=== PATIENT | female | born 1950 | race Caucasian/White ===

== ENCOUNTER 2017-11-19 09:26 | Inpatient (IN) | payer MEDICARE, BC ==
[~2017-11-19] VITALS: Ht 172.7 cm; Wt 76.0 kg
[2017-11-19] VITALS (17 sets, daily range): BP systolic 97–144; BP diastolic 51–94
[~2017-11-19 09:26] MED LIST: COU1T PO
[2017-11-19 10:34] LABS: BASOPHILS % (AUTO) 0.3 % (0-1); EOSINOPHILS # (AUTO) 0.1 X10'3 (0-0.9); EOSINOPHILS % (AUTO) 2.4 % (0-6); HEMATOCRIT 35.6 % (35.0-45.0); HEMOGLOBIN 11.5 g/dl (12.0-16.0); LYMPHOCYTES # (AUTO) 2.3 X10'3 (1.1-4.8); LYMPHOCYTES % (AUTO) 36.4 % (21-51); MEAN CORPUSCULAR HEMOGLOBIN 25.2 PG (27.0-31.0); MEAN CORPUSCULAR HGB CONC 32.3 % (33.0-36.5); MEAN CORPUSCULAR VOLUME 78.1 FL (78-98); MEAN PLATELET VOLUME 7.8 FL (7.4-10.4); MONOCYTES # (AUTO) 0.3 X10'3 (0-0.9); MONOCYTES % (AUTO) 5.5 % (2-12); NEUTROPHILS # (AUTO) 3.4 X10'3 (1.8-7.7); NEUTROPHILS % (AUTO) 55.4 % (42-75); PLATELET COUNT 196 X10'3 (140-440); RED BLOOD COUNT 4.56 X10'6 (4.20-5.60); RED CELL DISTRIBUTION WIDTH 16.5 % (11.5-14.5); WHITE BLOOD COUNT 6.2 X10'3 (4.5-11.0)
[2017-11-19 10:44] LABS: INR 0.9 INR; PARTIAL THROMBOPLASTIN TIME 23 SECONDS (22-32); PROTHROMBIN TIME 9.8 SECONDS (9.0-12.0)
[2017-11-19 10:49] LABS: ALANINE AMINOTRANSFERASE 19 U/L (12-78); ALBUMIN/GLOBULIN RATIO 1.1 (1.1-1.5); ALKALINE PHOSPHATASE 81 IU/L (46-116); ANION GAP 12 (8-16); ASPARTATE AMINO TRANSFERASE 18 U/L (10-37); BILIRUBIN,TOTAL 0.3 MG/DL (0.1-1.0); BLOOD UREA NITROGEN 17 MG/DL (7-18); CALCIUM 9.5 MG/DL (8.5-10.1); CHLORIDE 104 MMOL/L (99-107); GLUCOSE 111 MG/DL (70-104); POTASSIUM 3.6 MMOL/L (3.5-5.1); SODIUM 140 MMOL/L (135-145); TOTAL CARBON DIOXIDE 23.9 MMOL/L (24-32); TOTAL PROTEIN 7.6 G/DL (6.4-8.2); eGFR 56 ML/MIN
[2017-11-19] MEDS ORDERED: potassium Cl 20 mEq SR tablet PO PRN (12:50)
[2017-11-19] MEDS ORDERED: potassium Cl 40MEQ/NS 500ml 500 ML IV PRN ×2 (12:50)
[2017-11-19] MEDS ORDERED: magnesium Cl slow-release 64mg tablet PO PRN (12:50)
[2017-11-19] MEDS ORDERED: ondansetron/PF 4mg/2ml inj IV PRN ×2 (12:50→15:25)
[2017-11-19] MEDS ORDERED: magnesium 1gm/100ml D5W IVPB 100 ML IV PRN (12:50)
[2017-11-19] MEDS ORDERED: acetaminophen 325mg tablet PO PRN (12:50)
[2017-11-19] MEDS ORDERED: magnesium 4gm in 100ml NS 100 ML IV PRN (12:50)
[2017-11-19] MEDS ORDERED: fentaNYL/PF 50MCG/1 ML 2ML syringe ONE (14:37)
[2017-11-19] MEDS ORDERED: MIDAZolam 5mg/5ml vial ONE (14:38)
[2017-11-19] MEDS ORDERED: BUPIVAcaine/PF 7.5mg/ml (0.75%) 10ml vial ONE (14:40)
[2017-11-19] MEDS ORDERED: ceFAZolin 1GM/D5W- ADD-VANTAGE 50 ML IV ONE (15:00)
[2017-11-19] MEDS ORDERED: ringers solution, lacted 1,000 ML IV SCH (15:24)
[2017-11-19] MEDS ORDERED: HYDROmorphone 1 mg/ml syringe IV PRN ×2 (15:25→15:30)
[2017-11-19] MEDS ORDERED: diphenhydrAMINE 50 mg/ml inj ONE (15:29)
[2017-11-19] MEDS ORDERED: phenylephrine 10mg/ml inj. ONE (15:29)
[2017-11-19] MEDS ORDERED: bisacodyl 10mg suppository rectal RC PRN (15:30)
[2017-11-19] MEDS ORDERED: magnesium hydroxide 30ml (MOM) UD suspension PO PRN (15:30)
[2017-11-19] MEDS ORDERED: diphenhydrAMINE 25mg capsule PO PRN ×2 (15:30)
[2017-11-19] MEDS: normal saline 1000ml 1,000 ML IV SCH (16:58)
[2017-11-19] MEDS: ceFAZolin 1GM/D5W- ADD-VANTAGE 50 ML IV SCH ×2 (16:58→23:48)
[2017-11-19] MEDS ORDERED: FLUT1DIS4 INH (19:53)
[2017-11-19] MEDS ORDERED: ALBU18HF2 INH (19:53)
[2017-11-19] MEDS ORDERED: OMEP20TA5 PO (19:53)
[2017-11-19] MEDS ORDERED: MONT10TA21 PO (19:53)
[2017-11-19] MEDS ORDERED: EZET10TA14 PO (19:53)
[2017-11-19] MEDS: docusate sod 100mg capsule PO SCH (20:00)
[2017-11-19] MEDS: sennosides 8.6mg tablet PO SCH (20:15)
[2017-11-19] MEDS: calcium carbonate 500mg chew tablet PO PRN (20:17)
[2017-11-20 02:00] VITALS: BP 135/82
[2017-11-20] MEDS: calcium carbonate 500mg chew tablet PO PRN ×2 (02:27→09:59)
[2017-11-20 04:10] LABS: CLARITY,URINE CLEAR (Clear); COLOR,URINE YELLOW (Yellow); GLUCOSE, URINE NEGATIVE (Neg); KETONES,URINE NEGATIVE (Neg); LEUKOCYTE ESTERASE ,URINE NEGATIVE (Neg); NITRITES, URINE NEGATIVE (Neg); OCCULT BLOOD,URINE NEGATIVE (Neg); PROTEIN,URINE NEGATIVE (Neg); UROBILINOGEN,URINE 0.2 E.U/dL (0.2-1.0)
[2017-11-20 04:11] LABS: UA COLLECTION TYPE CLN CATCH MIDSTREAM
[2017-11-20 05:00] VITALS: BP 104/75
[2017-11-20 05:34] LABS: BASOPHILS % (AUTO) 0.2 % (0-1); EOSINOPHILS # (AUTO) 0.1 X10'3 (0-0.9); EOSINOPHILS % (AUTO) 1.7 % (0-6); HEMATOCRIT 32.5 % (35.0-45.0); HEMOGLOBIN 10.6 g/dl (12.0-16.0); LYMPHOCYTES # (AUTO) 1.4 X10'3 (1.1-4.8); LYMPHOCYTES % (AUTO) 17.8 % (21-51); MEAN CORPUSCULAR HEMOGLOBIN 25.4 PG (27.0-31.0); MEAN CORPUSCULAR HGB CONC 32.8 % (33.0-36.5); MEAN CORPUSCULAR VOLUME 77.6 FL (78-98); MEAN PLATELET VOLUME 8.3 FL (7.4-10.4); MONOCYTES # (AUTO) 0.5 X10'3 (0-0.9); NEUTROPHILS # (AUTO) 5.8 X10'3 (1.8-7.7); NEUTROPHILS % (AUTO) 74.3 % (42-75); PLATELET COUNT 166 X10'3 (140-440); RED BLOOD COUNT 4.19 X10'6 (4.20-5.60); RED CELL DISTRIBUTION WIDTH 16.4 % (11.5-14.5); WHITE BLOOD COUNT 7.8 X10'3 (4.5-11.0)
[2017-11-20 06:01] LABS: ALBUMIN 3.4 G/DL (3.4-5.0); ANION GAP 8 (8-16); BLOOD UREA NITROGEN 14 MG/DL (7-18); BUN/CREATININE RATIO 14.7 (6.6-38.0); CALCIUM 8.9 MG/DL (8.5-10.1); CHLORIDE 103 MMOL/L (99-107); CREATININE 0.95 MG/DL (0.40-0.90); GLUCOSE 134 MG/DL (70-104); MAGNESIUM 1.9 MG/DL (1.5-2.4); POTASSIUM 3.2 MMOL/L (3.5-5.1); SODIUM 138 MMOL/L (135-145); TOTAL CARBON DIOXIDE 26.8 MMOL/L (24-32); eGFR 59 ML/MIN
[2017-11-20] MEDS: docusate sod 100mg capsule PO SCH ×2 (07:31→19:48)
[2017-11-20] MEDS: potassium Cl 20 mEq SR tablet PO PRN ×2 (07:31→11:35)
[2017-11-20] MEDS: enoxaparin 40mg/0.4ml syringe SQ SCH (08:00)
[2017-11-20] MEDS: K and/or MAG REPLACEMENT MC SCH (08:00)
[2017-11-20 10:00] VITALS: BP 119/77
[2017-11-20] MEDS ORDERED: potassium Cl 20 mEq SR tablet PO STA (14:36)
[2017-11-20 18:00] VITALS: BP 123/86
[2017-11-20] MEDS: acetaminophen 325mg tablet PO PRN (19:47)
[2017-11-20] MEDS: sennosides 8.6mg tablet PO SCH ×2 (19:51→21:51)
[2017-11-20] MEDS ORDERED: albuterol 2.5 MG/3 ML nebule NEB PRN (21:20)
[2017-11-20] MEDS: ibuprofen 200mg tablet PO PRN (21:51)
[2017-11-20 22:00] VITALS: BP 117/73
[2017-11-21] MEDS: albuterol 2.5 MG/3 ML nebule NEB SCH ×2 (02:00→09:15)
[2017-11-21 05:00] VITALS: BP 129/75
[2017-11-21] MEDS: acetaminophen 325mg tablet PO PRN (05:36)
[2017-11-21] MEDS: ibuprofen 200mg tablet PO PRN (05:36)
[2017-11-21 06:57] LABS: BASOPHILS % (AUTO) 0.4 % (0-1); EOSINOPHILS # (AUTO) 0.2 X10'3 (0-0.9); EOSINOPHILS % (AUTO) 2.7 % (0-6); HEMATOCRIT 33.2 % (35.0-45.0); HEMOGLOBIN 10.9 g/dl (12.0-16.0); LYMPHOCYTES # (AUTO) 1.9 X10'3 (1.1-4.8); LYMPHOCYTES % (AUTO) 31.3 % (21-51); MEAN CORPUSCULAR HEMOGLOBIN 25.5 PG (27.0-31.0); MEAN CORPUSCULAR HGB CONC 32.7 % (33.0-36.5); MEAN CORPUSCULAR VOLUME 77.9 FL (78-98); MEAN PLATELET VOLUME 8.4 FL (7.4-10.4); MONOCYTES # (AUTO) 0.7 X10'3 (0-0.9); MONOCYTES % (AUTO) 10.7 % (2-12); NEUTROPHILS # (AUTO) 3.4 X10'3 (1.8-7.7); NEUTROPHILS % (AUTO) 54.9 % (42-75); PLATELET COUNT 185 X10'3 (140-440); RED BLOOD COUNT 4.26 X10'6 (4.20-5.60); RED CELL DISTRIBUTION WIDTH 16.7 % (11.5-14.5); WHITE BLOOD COUNT 6.2 X10'3 (4.5-11.0)
[2017-11-21 07:23] LABS: ALBUMIN 3.2 G/DL (3.4-5.0); ANION GAP 6 (8-16); BLOOD UREA NITROGEN 8 MG/DL (7-18); BUN/CREATININE RATIO 7.8 (6.6-38.0); CALCIUM 9.3 MG/DL (8.5-10.1); CHLORIDE 105 MMOL/L (99-107); CREATININE 1.02 MG/DL (0.40-0.90); GLUCOSE 97 MG/DL (70-104); MAGNESIUM 1.8 MG/DL (1.5-2.4); POTASSIUM 4.2 MMOL/L (3.5-5.1); SODIUM 140 MMOL/L (135-145); TOTAL CARBON DIOXIDE 28.7 MMOL/L (24-32); eGFR 54 ML/MIN
[2017-11-21] MEDS: K and/or MAG REPLACEMENT MC SCH (07:34)
[2017-11-21] MEDS: docusate sod 100mg capsule PO SCH (07:39)
[2017-11-21] MEDS: enoxaparin 40mg/0.4ml syringe SQ SCH (07:41)
[2017-11-21] MEDS ORDERED: BUDESONIDE 0.25 MG/2 ML AMPUL.NEB IH SCH (08:00)
[2017-11-21 10:00] VITALS: BP 117/75
[2017-11-21] MEDS ORDERED: ENOX40DI11 SQ (12:05)
[2017-11-21] MEDS: normal saline 1000ml 1,000 ML IV SCH (12:48)
== END 2017-11-21 14:20 | disposition home or self-care (01) | DRG 481 ==
LOC: ER 09:27 → ED HOLD 12:48 → ORTHO 4S 16:15
PROVIDERS: ADMIT Internal Medicine; ATTEND Internal Medicine
PROC: 0QS734Z Reposition Left Upper Femur with Internal Fixation Device, Percutaneous Approach (ICD-10-PCS; principal; 2017-11-19 14:34)
DX: S72.002A Fracture of unspecified part of neck of left femur, initial encounter for closed fracture (principal); D62 Acute posthemorrhagic anemia; E87.6 Hypokalemia; J45.909 Unspecified asthma, uncomplicated; M81.0 Age-related osteoporosis without current pathological fracture; M19.90 Unspecified osteoarthritis, unspecified site; Z96.652 Presence of left artificial knee joint; W01.0XXA Fall on same level from slipping, tripping and stumbling without subsequent striking against object, initial encounter; Z90.49 Acquired absence of other specified parts of digestive tract; Z90.710 Acquired absence of both cervix and uterus; Z91.040 Latex allergy status; Z88.5 Allergy status to narcotic agent; Z91.018 Allergy to other foods; Z79.899 Other long term (current) drug therapy; Z87.442 Personal history of urinary calculi; Y93.89 Activity, other specified; Y92.89 Other specified places as the place of occurrence of the external cause; Y99.8 Other external cause status
CPT/HCPCS: 36415; 71045; 73502; 76001; 80048; 80053; 81003; 83735; 85025; 85610; 85730; 87070; 93005; 94640; 94760; 97116; 97162; 97530; 99285; A4615; A6255; A7000; C1713; J0690; J1170; J1200; J1650; J2250; J2370; J2405; J3010; J3370; J3490; J7030; J7120; Q0163

== ENCOUNTER 2018-03-31 11:42 | Inpatient (IN) | payer MEDICARE, BC | END 2018-04-06 17:30 | disposition home IV services (08) | LOC: ORTHO 4S 04-03 21:50 → ER 11:42 → ED HOLD 20:26 → ORTHO 4S 22:05 | PROC: 0S9D0ZZ Drainage of Left Knee Joint, Open Approach (ICD-10-PCS; principal; 2018-04-01 13:42) | PROC: 0SPD09Z Removal of Liner from Left Knee Joint, Open Approach (ICD-10-PCS; 2018-04-01 13:42) | PROC: 0SUW09Z Supplement Left Knee Joint, Tibial Surface with Liner, Open Approach (ICD-10-PCS; 2018-04-01 13:42) | DX: T84.54XA Infection and inflammatory reaction due to internal left knee prosthesis, initial encounter (principal); M00.9 Pyogenic arthritis, unspecified; Y83.1 Surgical operation with implant of artificial internal device as the cause of abnormal reaction of the patient, or of later complication, without mention of misadventure at the time of the procedure; Z96.652 Presence of left artificial knee joint; E87.6 Hypokalemia ==

== ENCOUNTER 2019-02-19 08:03 | Emergency (ER) | payer MEDICARE, BC ==
[~2019-02-19] VITALS: Ht 172.7 cm; Wt 75.0 kg
[~2019-02-19 08:03] MED LIST changes: +ALBU18HF2 INH; -COU1T PO; +EZET10TA21 PO; +FLUT1DIS4 INH; +IBUP-1984 PO; +LACT1CAP26 PO; +MONT10TA21 PO; +OMEP20TA5 PO; +RIFA300C4 PO; +TERI2.4P SQ
[2019-02-19 08:42] LABS: BASOPHILS # (AUTO) 0.1 X10'3 (0-0.2); BASOPHILS % (AUTO) 0.8 % (0-1); EOSINOPHILS # (AUTO) 0.2 X10'3 (0-0.9); EOSINOPHILS % (AUTO) 3.3 % (0-6); HEMOGLOBIN 12.1 g/dl (12.0-16.0); LYMPHOCYTES # (AUTO) 3.2 X10'3 (1.1-4.8); LYMPHOCYTES % (AUTO) 45.4 % (21-51); MEAN CORPUSCULAR HEMOGLOBIN 27.9 PG (27.0-31.0); MEAN CORPUSCULAR HGB CONC 32.8 g/dL (33.0-36.5); MEAN PLATELET VOLUME 7.8 FL (7.4-10.4); MONOCYTES # (AUTO) 0.5 X10'3 (0-0.9); MONOCYTES % (AUTO) 7.8 % (2-12); NEUTROPHILS % (AUTO) 42.7 % (42-75); PLATELET COUNT 217 X10'3 (140-440); RED BLOOD COUNT 4.35 X10'6 (4.20-5.60); RED CELL DISTRIBUTION WIDTH 13.9 % (11.5-14.5)
[2019-02-19 09:03] LABS: ALANINE AMINOTRANSFERASE 23 U/L (12-78); ALBUMIN 4.1 G/DL (3.4-5.0); ALBUMIN/GLOBULIN RATIO 1.1 (1.1-1.5); ALKALINE PHOSPHATASE 80 IU/L (46-116); ANION GAP 9 (8-16); ASPARTATE AMINO TRANSFERASE 18 U/L (10-37); BILIRUBIN,TOTAL 0.4 MG/DL (0.1-1.0); BLOOD UREA NITROGEN 19 MG/DL (7-18); BUN/CREATININE RATIO 16.4 (6.6-38.0); CHLORIDE 103 MMOL/L (99-107); CREATININE 1.16 MG/DL (0.40-0.90); GLUCOSE 103 MG/DL (70-104); LIPASE 134 U/L (73-393); POTASSIUM 3.6 MMOL/L (3.5-5.1); SODIUM 140 MMOL/L (135-145); TOTAL CARBON DIOXIDE 28.1 MMOL/L (24-32); TOTAL PROTEIN 7.7 G/DL (6.4-8.2); eGFR 47 ML/MIN
[2019-02-19] MEDS ORDERED: acetaminophen 325mg tablet PO ONE (09:15)
[2019-02-19 09:36] LABS: CLARITY,URINE SLIGHTLY CLOUDY (Clear); COLOR,URINE YELLOW (Yellow); GLUCOSE, URINE NEGATIVE (Neg); KETONES,URINE NEGATIVE (Neg); LEUKOCYTE ESTERASE ,URINE NEGATIVE (Neg); NITRITES, URINE NEGATIVE (Neg); OCCULT BLOOD,URINE NEGATIVE (Neg); PROTEIN,URINE NEGATIVE (Neg); UA COLLECTION TYPE CLN CATCH MIDSTREAM; UROBILINOGEN,URINE 0.2 E.U/dL (0.2-1.0)
[2019-02-19 09:44] LABS: AMORPHOUS URATES 2+; BACTERIA,URINE FEW /HPF (Neg); MUCUS STRANDS NONE SEEN /LPF (Neg); RBC,URINE 0-2 /HPF (0-2); SQUAMOUS EPITHELIAL CELL,UR FEW /LPF (FEW); WBC,URINE 0-4 /HPF (0-4)
[2019-02-19] MEDS ORDERED: FLO0.4C PO (10:13)
[2019-02-19] MEDS ORDERED: ONDA4TAB6 PO (10:13)
[2019-02-19 10:22] VITALS: BP 129/97
== END 2019-02-19 10:23 | disposition home or self-care (01) ==
LOC: ER 08:03
DX: N20.0 Calculus of kidney (principal); J45.909 Unspecified asthma, uncomplicated; Z90.49 Acquired absence of other specified parts of digestive tract; Z90.710 Acquired absence of both cervix and uterus; Z98.890 Other specified postprocedural states; Z91.040 Latex allergy status; Z88.5 Allergy status to narcotic agent; Z79.2 Long term (current) use of antibiotics; Z79.899 Other long term (current) drug therapy
CPT/HCPCS: 36415; 74176; 80053; 81001; 83690; 85025; 99284

== ENCOUNTER 2023-12-11 05:42 | Day surgery (SDC) | payer MEDICARE, BC ==
[2023-12-08 14:26] LABS: BASOPHILS % (AUTO) 0.4 % (0-1); EOSINOPHILS # (AUTO) 0.1 X10'3 (0-0.9); LYMPHOCYTES # (AUTO) 2.3 X10'3 (1.1-4.8); LYMPHOCYTES % (AUTO) 26.7 % (21-51); MEAN CORPUSCULAR HEMOGLOBIN 31.3 PG (27.0-31.0); MEAN CORPUSCULAR HGB CONC 32.9 g/dL (33.0-36.5); MEAN CORPUSCULAR VOLUME 94.9 FL (78-98); MEAN PLATELET VOLUME 7.7 FL (7.4-10.4); MONOCYTES # (AUTO) 0.7 X10'3 (0-0.9); MONOCYTES % (AUTO) 8.4 % (2-12); NEUTROPHILS # (AUTO) 5.3 X10'3 (1.8-7.7); NEUTROPHILS % (AUTO) 63.5 % (42-75); PRE OP HEMOGLOBIN 15.5 g/dL (12.0-16.0); PRE OP PLATELET COUNT 203 X10'3 (140-440); PRE OP WHITE BLOOD COUNT 8.4 10'3 (4.8-10.8); RED BLOOD COUNT 4.95 X10'6 (4.20-5.60); RED CELL DISTRIBUTION WIDTH 13.2 % (11.5-14.5)
[2023-12-08 14:39] LABS: ALBUMIN 4.2 G/DL (3.4-5.0); ALBUMIN/GLOBULIN RATIO 1.2 (1.1-1.5); ALKALINE PHOSPHATASE 84 IU/L (46-116); BLOOD UREA NITROGEN 10 MG/DL (7-18); BUN/CREATININE RATIO 9.7 (10.0-20.0); CALCIUM 9.4 MG/DL (8.5-10.1); CHLORIDE 105 MMOL/L (99-107); CREATININE 1.03 MG/DL (0.40-0.90); PRE OP ALT 31 U/L (30-65); PRE OP ANION GAP 8 (8-16); PRE OP AST 24 U/L (10-37); PRE OP BILIRUB, TOTAL 0.4 MG/DL (0.0-1.0); PRE OP GLUCOSE 103 MG/DL (70-104); PRE OP POTASSIUM 3.6 MMOL/L (3.4-5.1); PRE OP SODIUM 141 MMOL/L (135-145); TOTAL CARBON DIOXIDE 27.7 MMOL/L (24-32); TOTAL PROTEIN 7.6 G/DL (6.4-8.2); eGFR 53 ML/MIN
[~2023-12-11] VITALS: Ht 172.7 cm; Wt 77.6 kg
[2023-12-11] VITALS (11 sets, daily range): BP systolic 123–137; BP diastolic 78–125; PULSE 79–94; RESP 12–24; TEMP 97.7; O2SAT 90–100
[~2023-12-11 05:42] MED LIST changes: -ALBU18HF2 INH; +ALEN70TA80 PO; +CRANBERRY CAPS; +D-MANNOSE; +DIPH25TA27 PO; +EPIN0.3A3 SQ; +ESTR10TA9 PV; +EXCEDRIN; -EZET10TA21 PO; +EZET10TA6 PO; +FLO0.4C PO; +FLUT1BLS11 PO; -FLUT1DIS4 INH; -IBUP-1984 PO; -LACT1CAP26 PO; +LEVA15HF6 INH; +MONT-47 PO; -MONT10TA21 PO; -OMEP20TA5 PO; +OMEP40CA21 PO; -RIFA300C4 PO; +SLEEP AID; +STOOL SOFTENER; -TERI2.4P SQ; +TYLENOL
[2023-12-11] MEDS: cefazolin 2gm/D5W 100mL 100 ML IV ONE (06:46)
[2023-12-11] MEDS: ringers solution, lacted 1,000 ML IV SCH (06:46)
[2023-12-11] MEDS: famotidine 20mg tablet PO ONE (06:47)
[2023-12-11] MEDS ORDERED: fentaNYL/PF 50MCG/1 ML 2ML syringe ONE (08:07)
[2023-12-11] MEDS ORDERED: midazolam 1 mg/ML 2ml injection ONE (08:07)
[2023-12-11] MEDS ORDERED: sevoflurane 250ml liquid IH ONE (08:10)
[2023-12-11] MEDS ORDERED: propofol inj 20 ML IV ONE (08:10)
[2023-12-11] MEDS ORDERED: LIDOcaine 2% (20mg/ml) 5ml vial ONE (08:10)
[2023-12-11] MEDS ORDERED: ringers solution, lacted 1,000 ML IV SCH (08:15)
[2023-12-11] MEDS ORDERED: meperidine/PF 25mg/ml syringe IV PRN ×3 (08:15)
[2023-12-11] MEDS ORDERED: proCHLORperazine 10 MG/2 ml inj IV PRN (08:15)
[2023-12-11] MEDS ORDERED: ondansetron/PF 4mg/2ml inj IV PRN (08:15)
[2023-12-11] MEDS ORDERED: enalaprilat dihydrate 2.5mg/2ml vial IV PRN (08:15)
[2023-12-11] MEDS ORDERED: rocuronium 10mg/ml inj IV ONE (08:48)
[2023-12-11] MEDS ORDERED: acetaminophen 1,000mg/100ml IV 100 ML IV ONE (08:49)
[2023-12-11] MEDS: BUPIVAcaine 2.5mg/ml inj 50ml vial (contains preservative) ONE (09:08)
[2023-12-11] MEDS: LIDOcaine 1% (10mg/ml)w/preservative inj. 20ml MDV ONE (09:09)
[2023-12-11] MEDS ORDERED: HYDROcodone/acetaminophen 5mg/325mg tablet PO PRN (10:15)
== END 2023-12-11 10:45 | disposition home or self-care (01) ==
LOC: PAS 05:42
PROVIDERS: ATTEND Surgery
DX: K40.90 Unilateral inguinal hernia, without obstruction or gangrene, not specified as recurrent (principal); I44.4 Left anterior fascicular block; E78.5 Hyperlipidemia, unspecified; K21.9 Gastro-esophageal reflux disease without esophagitis; J45.909 Unspecified asthma, uncomplicated; I25.2 Old myocardial infarction; M19.90 Unspecified osteoarthritis, unspecified site; Z87.440 Personal history of urinary (tract) infections; Z79.899 Other long term (current) drug therapy; Z90.49 Acquired absence of other specified parts of digestive tract; Z90.89 Acquired absence of other organs; Z96.653 Presence of artificial knee joint, bilateral; Z98.891 History of uterine scar from previous surgery; Z98.890 Other specified postprocedural states; Z91.010 Allergy to peanuts; Z91.040 Latex allergy status; Z88.5 Allergy status to narcotic agent
CPT/HCPCS: 36415; 49650; 80053; 82948; 85025; 93005; A4215; A4618; C1781; J0131; J0690; J1100; J2001; J2250; J2405; J2704; J2710; J3010; J3490; J7030; J7120; Z7506; Z7508; Z7512; Z7610